=== PATIENT | male | born 1985 | race Caucasian/White ===

== ENCOUNTER 2020-11-25 23:05 | Emergency (ER) | payer OTHER, MEDICARE ==
[~2020-11-25] VITALS: Ht 182.9 cm; Wt 104.3 kg
[~2020-11-25 23:05] MED LIST: DESYREL50 MG PO; FLEXERIL; MORPHINE; PAXIL; PROPRANOLOL 4040 M1; REGLAN 10 MG TA10 MG PO; VICODIN; XANAX 0.5 MG0.5 M1
[2020-11-25] MEDS ORDERED: ZYRTEC10 M5 PO (23:11)
[2020-11-25 23:38] LABS: ABSOLUTE BASOPHILS 0.1 thou/uL (0.0-0.2); ABSOLUTE EOSINOPHILS 0.1 thou/uL (0.0-0.7); ABSOLUTE LYMPHOCYTES 3.3 thou/uL (0.8-5.3); ABSOLUTE MONOCYTES 0.8 thou/uL (0.0-1.2); ABSOLUTE NEUTROPHILS 8.8 thou/uL (1.6-8.1); BASOPHILS 0.8 %; EOSINOPHILS 0.5 %; HEMATOCRIT 41.9 % (42.0-52.0); HEMOGLOBIN 14.3 gm/dL (14.0-18.0); LYMPHOCYTES 25.1 %; MCH 28.9 pg (26.0-34.0); MCV 84.8 fL (80.0-100.0); MONOCYTES 6.4 %; MPV 8.1 fl. (7.2-11.1); NUCLEATED RBCS 0 /100WBC; PLATELET COUNT* 279 thou/uL (150-400); POLYS 67.2 %; RBC 4.95 mil/uL (4.50-6.00); RDW-CV 13.6 % (10.5-14.5); WBC 13.1 thou/uL (4.0-11.0)
[2020-11-25 23:46] LABS: CALCIUM 8.5 mg/dL (8.5-10.1); CREATININE 1.3 mg/dL (0.6-1.3); POTASSIUM 4.1 mmol/L (3.5-5.1)
[2020-11-25 23:50] LABS: TOTAL BILIRUBIN 0.5 mg/dL (<0.1-1.0); TOTAL PROTEIN 7.2 g/dL (6.4-8.2)
[2020-11-26 01:04] LABS: URINE BILIRUBIN NEGATIVE (Negative); URINE BLOOD NEGATIVE (Negative); URINE CLARITY CLEAR; URINE COLOR YELLOW; URINE GLUCOSE-RANDOM NEGATIVE (Negative); URINE KETONES NEGATIVE (Negative); URINE LEUKOCYTES-REFLEX NEGATIVE (Negative); URINE NITRITE-REFLEX NEGATIVE (Negative); URINE PROTEIN NEGATIVE (Negative); URINE SPECIFIC GRAVITY >= 1.030 (1.005-1.030); URINE UROBILINOGEN 0.2 E.U./dl (0.2-1.0)
[2020-11-26 01:52] VITALS: BP 109/79
== END 2020-11-26 01:53 | disposition home or self-care (01) ==
LOC: M.ERS 23:05
PROVIDERS: Personal Emergency Response Attendant
DX: E86.0 Dehydration (principal); R25.2 Cramp and spasm; Z91.013 Allergy to seafood; Z88.8 Allergy status to other drugs, medicaments and biological substances

== ENCOUNTER → 2020-12-21 | Outpatient (CLI) | payer OTHER ==
[~2020-12-21] MED LIST changes: +ARTHRITIS PAIN100 GM TOP; +LORATIDINE 10 M10 M1 PO; +PAROXETINE HCL20 MG PO; +ZYRTEC10 M5 PO
== END ==
LOC: M.PC 09:18
PROVIDERS: ATTEND Physical Medicine & Rehabilitation
DX: M47.814 Spondylosis without myelopathy or radiculopathy, thoracic region (principal); M19.011 Primary osteoarthritis, right shoulder; M19.012 Primary osteoarthritis, left shoulder; Z79.899 Other long term (current) drug therapy; Z79.891 Long term (current) use of opiate analgesic

== ENCOUNTER → 2021-05-10 | Outpatient (CLI) | payer OTHER | LOC: M.PC 09:02 | PROVIDERS: ATTEND Physical Medicine & Rehabilitation | DX: M47.816 Spondylosis without myelopathy or radiculopathy, lumbar region (principal); M51.26 Other intervertebral disc displacement, lumbar region; M79.605 Pain in left leg; M47.814 Spondylosis without myelopathy or radiculopathy, thoracic region; M51.24 Other intervertebral disc displacement, thoracic region; M19.019 Primary osteoarthritis, unspecified shoulder; M25.511 Pain in right shoulder; M25.512 Pain in left shoulder; M25.569 Pain in unspecified knee; I10 Essential (primary) hypertension ==

== ENCOUNTER → 2021-06-07 | Outpatient (CLI) | payer OTHER | LOC: M.PC 10:02 | PROVIDERS: ATTEND Physical Medicine & Rehabilitation | DX: M51.36 Other intervertebral disc degeneration, lumbar region (principal); M47.816 Spondylosis without myelopathy or radiculopathy, lumbar region; M51.34 Other intervertebral disc degeneration, thoracic region; M47.814 Spondylosis without myelopathy or radiculopathy, thoracic region; M79.605 Pain in left leg; M19.012 Primary osteoarthritis, left shoulder; M19.011 Primary osteoarthritis, right shoulder; I10 Essential (primary) hypertension; T78.1XXA Other adverse food reactions, not elsewhere classified, initial encounter; Z91.048 Other nonmedicinal substance allergy status; X58.XXXA Exposure to other specified factors, initial encounter ==